=== PATIENT | female | born 1975 | race Caucasian/White ===

== ENCOUNTER → 2016-11-01 | Outpatient (CLI) | payer MEDICAID ==
[~2016-11-01] MED LIST: COLACE100 MG PO; DULCOLAX5 MG PO; HYDROCODON-ACE1 EAC4 PO; MIDOL CAPLET1 EAC1 PO; MIRALAX17 GM PO; NUCYNTA50 MG PO; PERCOCET 5-3251 EACH PO; PROZAC20 MG PO; SUDAFED 24-HOU240 MG PO; ZOFRAN4 MG PO
== END | disposition disaster alternative care site (69) ==
LOC: GBCOE 09:09
DX: Z12.31 Encounter for screening mammogram for malignant neoplasm of breast (principal); Z98.82 Breast implant status
CPT/HCPCS: G0202